=== PATIENT | female | born 1960 | race Caucasian/White ===

== ENCOUNTER 2017-11-26 14:12 | Outpatient (CLI) | payer OTHER | END 2017-11-26 14:13 | disposition home or self-care (01) | LOC: BICRAD 14:12 | PROVIDERS: ATTEND Internal Medicine | DX: Z02.71 Encounter for disability determination (principal); M46.96 Unspecified inflammatory spondylopathy, lumbar region | CPT/HCPCS: 72100 ==

== ENCOUNTER 2018-10-13 11:44 | Outpatient (CLI) | payer MEDICARE ==
--- NOTE | 2018-10-13 12:17 | RAD ---
EXAM: XR Forearm Lt 2 View STANDARD PROVIDED CLINICAL HISTORY: Pain FINDINGS: There is no evidence for fracture or other acute osseous abnormality. Alignment appears anatomic. Katey nt spaces appear preserved. IMPRESSION: No evidence for an acute osseous abnormality. If there is persistent clinical concern, conservative m anagement and follow-up imaging advised.
== END 2018-10-13 11:45 | disposition home or self-care (01) ==
LOC: BICRAD 11:44
PROVIDERS: ATTEND Family Medicine
DX: M79.632 Pain in left forearm (principal); M25.522 Pain in left elbow